=== PATIENT | male | born 1975 | race Caucasian/White ===

== ENCOUNTER → 2016-12-24 | Outpatient (CLI) | payer BC ==
[~2016-12-24] MED LIST: ATOR10TA88 PO
--- NOTE | 2016-12-24 10:18 | DIAGNOSTIC IMAGING REPORT ---
KUB CLINICAL HISTORY: CHRONIC PROSTATITIS 601.0, N41.1 pain COMPARISON STUDY: No previous studies for comparison. FINDINGS: The soft tissues, psoas shadows, renal outlines and intestinal gas pattern appear normal. There is no evidence for bowel obstruction. No abnormal abdominal calcifications are seen. Several pelvic vascular calcifications are noted. Several surgical clips in the right flank possibly in the region of the appendix IMPRESSION: Normal study. Electronically signed by: Keo Matos M.D. 12/24/2016 10:16 AM Dictated Date/Time: 12/24/2016 10:16 AM
== END | disposition home or self-care (01) ==
LOC: C.RAD 09:32
PROVIDERS: ATTEND Urology
DX: N41.1 Chronic prostatitis (principal)